=== PATIENT | male | born 1950 | race Caucasian/White ===

== ENCOUNTER 2019-07-15 03:45 | Outpatient (RCR) | payer MEDICARE, MEDICAID, SELFPAY | END 2019-08-09 00:01 | LOC: LAB 03:45 | PROVIDERS: Family Provider Internal Medicine; Visit Provider Nurse Practitioner Family | DX: E11.9 Type 2 diabetes mellitus without complications (principal); D64.9 Anemia, unspecified; I10 Essential (primary) hypertension | CPT/HCPCS: 36415 ×2; 80053 ×2; 80061; 80164; 82044; 83036; 83690; 84443; 85025 ×2; G0103 ==

== ENCOUNTER 2019-09-08 08:01 | Outpatient (CLI) | payer MEDICARE, MEDICAID, SELFPAY ==
[2019-09-08 10:09] LABS: Blood Urea Nitrogen 13 mg/dL (8-23); Glomerular Filtration Rate 66.4 mL/min (90-130)
[2019-09-08] MEDS: iohexol 300 mg/mL 100 mL Btl IV (10:21)
[2019-09-08] MEDS: iohexol 300 mg/mL 50 mL Btl PO (10:22)
--- NOTE | 2019-09-08 10:30 | CT_ITS ---
WS: [id number] CT ABDOMEN AND PELVIS WITH CONTRAST HISTORY: ABDOMINAL PAIN TECHNIQUE: Imaging performed of the abdomen and pelvis with IV contrast. Single phase imaging of the abdomen. Coronal and sagittal reformats are submitted. All CT scans at [facility] use at least one of these dose optimization techniques: automated exposure control; mA and/or kV adjustment per patient size (includes targeted exams where dose is matched to clinical indication); or iterativ e reconstruction. IV CONTRAST: Omnipaque 300; 95 mL IV. Oral contrast: Yes. DLP: 836.35 mGycm COMPARISON: 05/22/2017 Lower thorax: Dependent changes at the lung bases. No mass or pneumonia. Heart is normal size. Modera te size hiatal hernia. Hernia has increased in size since 05/22/2017. Liver/biliary system: Normal size with no intrahepatic dilatation. Gallbladder: Normal. No gallstones or wall thickening. No pericholecystic fluid. Pancreas: Normal. Spleen: Normal. Adrenal glands: Normal. Right kidney: Normal size kidney with scattered hypodensities which are stable. No obstruction. Left kidney: Normal size kidney with scattered hypodensities. These hypodensities are stable but real ly too small to characterize. Aorta: Normal. Lymphadenopathy: None. Free fluid: None. GI tract: Moderate constipation with no obstruction. The appendix is normal. No significant diverticu lar disease. Abdominal wall: Unremarkable abdominal wall. No hernia. Pelvis: Surgical repair of the LEFT inguinal hernia since the prior examination. There are postoperat janeen changes at the LEFT inguinal region. No recurrent hernia. Prostate gland is very minimally enlarg ed. 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 Schmorl's node with loss of height at L1 and L2 are stable. CT/CT abdomen pelvis w con* [id number] IMPRESSION: 1. Moderate-sized hiatal hernia which has increased since 05/22/2017. 2. Normal gallbladder. 3. Bilateral renal hypodensities are stable and and majority of these are too small to characterize. 4. Interval surgical repair of the LEFT inguinal hernia. No recurrence.
== END 2019-09-08 08:02 | disposition home or self-care (01) ==
LOC: RADWPI 08:11
PROVIDERS: Radiology Diagnostic Radiology; Family Provider Internal Medicine; PCP Family Medicine; Visit Provider Surgery
DX: K44.9 Diaphragmatic hernia without obstruction or gangrene (principal)
CPT/HCPCS: 74177; 82565; 84520; Q9967

== ENCOUNTER → 2023-11-12 09:06 | Outpatient (BNVA) | payer MEDICARE, MEDICAID, SELFPAY | PROVIDERS: Family Provider Internal Medicine; PCP Family Medicine; Visit Provider Podiatrist Foot & Ankle Surgery | DX: L60.3 Nail dystrophy (principal); I73.9 Peripheral vascular disease, unspecified; B35.3 Tinea pedis; E11.69 Type 2 diabetes mellitus with other specified complication | CPT/HCPCS: 11721; 99203 ==